=== PATIENT | male | born 1995 ===

== ENCOUNTER 2024-02-12 18:35 | Emergency (ER) | payer SELFPAY ==
[~2024-02-12] VITALS: Ht 172.7 cm; Wt 80.3 kg
[2024-02-12 20:19] LABS: BASOPHILS # (AUTO) 0.03 K/uL (0.00-0.20); BASOPHILS % (AUTO) 0.4 % (0.0-5.0); EOSINOPHILS # (AUTO) 0.07 K/uL (0.00-0.70); EOSINOPHILS % (AUTO) 0.9 % (0.0-8.0); HEMATOCRIT 46.8 % (42-54); IMMATURE GRANULOCYTE ABSOLUTE 0.02 K/uL (0-1); LYMPHOCYTES # (AUTO) 2.5 K/uL (1.0-4.8); LYMPHOCYTES % (AUTO) 34.1 % (21.0-51.0); MEAN CORPUSCULAR HEMOGLOBIN 29.4 pg (27.0-33.0); MEAN CORPUSCULAR HGB CONC 34.8 g/dL (32.0-36.0); MEAN CORPUSCULAR VOLUME 84.3 fL (79-99); MONOCYTES # (AUTO) 0.5 K/uL (0.1-1.0); MONOCYTES % (AUTO) 6.4 % (3.0-13.0); NEUTROPHILS # (AUTO) 4.3 K/uL (1.8-7.7); NEUTROPHILS % (AUTO) 57.9 % (40.0-77.0); PLATELET COUNT (AUTO) 262 K/uL (130-400); RED BLOOD CELL COUNT(AUTO) 5.55 MIL/uL (4.50-6.20); RED CELL DISTRIBUTION WIDTH 11.7 % (11.0-15.5); WHITE BLOOD COUNT (AUTO) 7.4 K/uL (4.8-10.8)
[2024-02-12 20:29] LABS: CREATININE 1.1 mg/dL (0.5-1.3); POTASSIUM 4.4 mmol/L (3.5-5.1)
--- NOTE | 2024-02-12 20:35 | HMCIMG ---
TIBIA/FIBULA 2VWS LT INDICATION: pain/wound TECHNIQUE: TIBIA/FIBULA 2VWS LT. FINDINGS/IMPRESSION: No displaced fracture or dislocation is seen. Correlate clinically. There is mild soft tissue swelling No radiopaque foreign body is identified.
[2024-02-12] MEDS: 0.9%NACL 1000ML 1,000 ML IV STA (20:44)
[2024-02-12] MEDS: INSULIN humuLIN R 100 UNIT/ML 3ML IV STA (20:45)
[2024-02-12 21:21] LABS: ERYTHROCYTE SEDIMENTATION RATE 12 MM/HR (0-15)
[2024-02-12 21:40] VITALS: TEMP 98.7
--- NOTE | 2024-02-12 21:52 | NUR ---
RECHECK OF BLOOD GLUCOSE AT 226.
[2024-02-12] MEDS ORDERED: METF-444 PO (22:27)
[2024-02-12] MEDS ORDERED: SULF1TAB42 PO (22:27)
--- NOTE | 2024-02-12 22:28 | ERN ---
ED Note History of Present Illness Stated Complaint: INFECTED WOUND Chief Complaint: Wound Check Time Seen by MD: 18:40 Time Seen by Midlevel: 18:44 Dictation: 28-year-old male with no medical problems coming in complaining of wound to the left tib-fib area that started 2-3 weeks ago. Patient states he usually gets these pimple like abscesses it but go away on their own states it is and has not. Denies having any fever, nausea, vomiting or diarrhea. Patient complains of pain to the site. Allergies: Coded Allergies: amoxicillin (Unverified Allergy, Unknown, DIZZINESS, 02/12/24) Past Medical History Past Medical History: No Pertinent History Surgical History: Other Surgical History Other: BACK CYST REMOVAL Review of System Dictation Constitutional: Negative for fever,chills, and weight loss Eyes: Negative for injury, pain,redness, and discharge ENT: Negative for injury,pain or swelling Cardiovascular: Negative for chest pain, palpitations, and edema Respiratory: Negative for shortness of breath, cough, and wheezing, Abdomen/GI: Negative for abdominal pain, nausea, vomiting, diarrhea, and constipation Back: Negative for injury and pain : Negative for injury, bleeding and discharge MS/Extremity: Negative for injury and deformity Skin: Negative for rash, and discoloration wound, nonhealing to the left lower leg Neuro: Negative for headache, weakness, numbness, tingling, and seizure Psych: Negative for suicide ideation, homicidal ideation, and hallucinations Review of Systems: was completed Initial Vital Sign VS Vital Signs Date Time Temp Pulse Resp B/P (MAP) Pulse Ox O2 Delivery O2 Flow Rate FiO2 02/12/24 18:40 97.5 104 16 132/82 98 Room Air 0 02/12/24 18:49 21 Physical Exam Dictation General: awake, alert, NAD Head/Face: Normocephalic, atraumatic Eyes: PERRL, EOMI, vision at baseline ENT: oral cavity clear, TMs clear, no signs of infection Neck: Trachea midline, supple, no nuchal rigidity Cardiovascular: RRR, normal S1/S2, No MRGs, no JVD Respiratory: CTAB, no respiratory distress, No rales or wheezes Abdomen: Soft, non-tender, non-distended, normal bowel sounds, no guarding or rebound. Skin: Warm, dry, normal turgor, no rash there is an open wound to the left mid tib-fib, serosanguineous drainage, no foul odor, mild erythema, no streaking. MS/Extremity: Pulses equal, no cyanosis, neurovascular intact, FROM Neuro: COAx4, GCS 15, strength 5/5, CN 2-12 intact, normal cerebellar exam, normal gait, Psych: Normal behavior, mood, and affect normal Results (Laboratory/Radiology) Laboratory/Radiology Laboratory Tests Test 02/12/24 20:08 02/12/24 21:51 White Blood Count 7.4 K/uL (4.8-10.8) Red Blood Count 5.55 MIL/uL (4.50-6.20) Hemoglobin 16.3 g/dL (14.0-18.0) Hematocrit 46.8 % (42-54) Mean Corpuscular Volume 84.3 fL (79-99) Mean Corpuscular Hemoglobin 29.4 pg (27.0-33.0) Mean Corpuscular Hemoglobin Concent 34.8 g/dL (32.0-36.0) Red Cell Distribution Width 11.7 % (11.0-15.5) Platelet Count 262 K/uL (130-400) Mean Platelet Volume 10.2 fL (7.5-10.5) Immature Granulocyte % (Auto) 0.3 % (0-1) Neutrophils (%) (Auto) 57.9 % (40.0-77.0) Lymphocytes (%) (Auto) 34.1 % (21.0-51.0) Monocytes (%) (Auto) 6.4 % (3.0-13.0) Eosinophils (%) (Auto) 0.9 % (0.0-8.0) Basophils (%) (Auto) 0.4 % (0.0-5.0) Neutrophils # (Auto) 4.3 K/uL (1.8-7.7) Lymphocytes # (Auto) 2.5 K/uL (1.0-4.8) Monocytes # (Auto) 0.5 K/uL (0.1-1.0) Eosinophils # (Auto) 0.07 K/uL (0.00-0.70) Basophils # (Auto) 0.03 K/uL (0.00-0.20) Absolute Immature Granulocyte (auto 0.02 K/uL (0-1) Nucleated Red Blood Cells 0.0 % (0.0-0.19) Erythrocyte Sedimentation Rate 12 MM/HR (0-15) Sodium Level 135 mmol/L (136-145) L Potassium Level 4.4 mmol/L (3.5-5.1) Chloride Level 97 mmol/L (101-111) L Carbon Dioxide Level 30 mmol/L (21-32) Blood Urea Nitrogen 13 mg/dL (7-18) Creatinine 1.1 mg/dL (0.5-1.3) Glomerular Filtration Rate Calc 95 mL/min (>90) Random Glucose 433 mg/dL (70-105) *H Total Calcium 10.4 mg/dL (8.5-10.1) H Whole Blood Glucose 226 MG/DL (70-110) H Labs Reviewed?: Yes X-RAY Comment: [id number] [place] [address] IMAGING REPORT Signed PATIENT: CONSTANTIN HOPKINS MR#: [id number] : 1995 SEX: M AGE: 28 LOCATION: [facility] ORDER 30 STATUS: REG ER REPORT#: [id number] SERVICE 28 REASON: pain/wound ORDERING PHYSICIAN: ELEANOR ROBLES NP PROCEDURE: TIBFIB LT - TIBIA/FIBULA 2VWS LT TIBIA/FIBULA 2VWS LT INDICATION: pain/wound TECHNIQUE: TIBIA/FIBULA 2VWS LT. FINDINGS/IMPRESSION: No displaced fracture or dislocation is seen. Correlate clinically. There is mild soft tissue swelling No radiopaque foreign body is identified. DICTATED BY: JOHNATHON KENNEY MD DATE: 02/12/242031 ELECTRONICALLY SIGNED BY: JOHNATHON KENNEY MD DATE: 02/12/242034 ED Course ED Course Orders Procedure Category Date Status Time Tibia/Fibula 2vws Lt RAD 02/12/24 Resulted 19:29 Cbc With Differential LAB 02/12/24 Complete 19:29 Basic Metabolic Panel LAB 02/12/24 Complete 19:29 Erythrocyte LAB 02/12/24 Complete Sedimentation Rate 19:29 0.9%Nacl 1000ml (Ns PHA 02/12/24 Complete 1000ml) 20:32 Insulin Regular, PHA 02/12/24 Complete Human 3ml (Humulin R 20:32 Current Medications Medications (Trade) Dose Ordered Sig/Nesha Route PRN Reason Start Time Stop Time Status Last Admin Dose Admin Insulin Human Regular (humuLIN R 100 UNIT/ML 3ML) 8 unit ONCE STAT IV 02/12/24 20:32 02/12/24 20:34 DC 02/12/24 20:45 Sodium Chloride 1,000 ml @ 1,000 mls/hr Q1H STAT IV 02/12/24 20:32 02/12/24 21:31 DC 02/12/24 20:44 Vital Signs Date Time Temp Pulse Resp B/P (MAP) Pulse Ox O2 Delivery O2 Flow Rate FiO2 02/12/24 21:40 98.8 87 18 121/68 97 Room Air* 0 02/12/24 20:54 92 20 119/62 96 Room Air* 0 02/12/24 19:45 98.1 98 18 127/58 96 Room Air* 0 02/12/24 18:49 99.0 104 20 131/56 96 Room Air* 0 02/12/24 18:40 97.5 104 16 132/82 98 Room Air 0 Medical Decision Making MDM MDM: 28-year-old male with no medical problems coming in complaining of wound to the left tib-fib area that started 2-3 weeks ago. Patient states he usually gets these pimple like abscesses it but go away on their own states it is and has not. Denies having any fever, nausea, vomiting or diarrhea. Patient complains of pain to the site. On the left lower extremity, there is a wound that is draining serosanguineous fluid, mild erythema, no foul odor. There is pain on palpation.CBC shows no leukocytosis, no anemia, thrombocytopenia. ESR within normal range. Chemistry shows sodium of 135, glucose of 433, patient is unaware that he has diabetes. Came in L of fluids, insulin IV, sugars now 226. Discussed findings with the patient. Educated patient wound probably never heal related the diabetes that he did not know he had. Educated and we will discharge him with metformin an antibiotic and he needs to follow up outpatient with a PCP for further evaluation. Patient verbalized understanding, answered all questions. Differential diagnosis: Cellulitis, abscess, ulcer Rationale: Tests considered and ordered secondary to shared decision making include: Previous outside records reviewed: Old ER visits. Risk of complication and/or morbidity or mortality of patient management: None Medications-Per medication reconciliation Need for hospitalization: Patient does not meet criteria for hospitalization. Need for emergency major/minor surgery: No There are no social concerns with this patient. Prescription drug management Prescriptions will include symptomatic care Patient's prior external medical records from other ER visits were reviewed by me as indicated. Prior testing and results from previous visits were reviewed. Prior tests were taken into account with medical decision making and resource utilization, independent historian/historians were used to obtain complete medical history. I independently interpreted the test that were performed, results were reviewed by me and considered findings on radiology if ordered. Medical management and examination interpretation discussions were had by me with other qualified healthcare professionals as indicated for the patient's care. DX & DISP Disposition: Discharge Departure Impression: Primary Impression: Diabetes mellitus, new onset Additional Impression: Wound infection Condition: Stable Scripts Sulfamethoxazole/Trimethoprim (Bactrim Ds Tablet) 800 Mg-160 Mg Tablet 1 TAB PO BID for 10 Days, #20 TAB 0 Refills Prov: ELEANOR ROBLES NP 02/12/24 Metformin HCl (Metformin HCl) 500 Mg Tablet 1 TAB PO BID for 30 Days, #60 TAB 0 Refills Prov: ELEANOR ROBLES NP 02/12/24 Additional Instructions: A cleaned the wound with soap and water, take antibiotics as prescribed and take metformin as prescribed. You need to have a PCP to follow up regarding your new onset diabetes. Return to the ER if you develop any fevers, nausea, vomiting. Referrals: SANDRA FOREMAN MD Time of Disposition: 22:27 I have reviewed the case, and I agree with, Diagnosis and Plan ELEANOR ROBLES NP Feb 12, 2024 22:28
[2024-02-12 22:31] VITALS: BP 127/63; PULSE 82; RESP 20; O2SAT 99
== END 2024-02-12 22:42 | disposition home or self-care (01) ==
LOC: EDH 18:41
DX: E11.9 Type 2 diabetes mellitus without complications (principal); L08.9 Local infection of the skin and subcutaneous tissue, unspecified; Z79.84 Long term (current) use of oral hypoglycemic drugs; Z88.0 Allergy status to penicillin
CPT/HCPCS: 99284; 96374; 80048; 85025; 85651; 82948; 36415; 73590; J1815; J7030